=== PATIENT | female | born 1970 | race Caucasian/White ===

== ENCOUNTER 2021-11-06 09:52 | Emergency (ER) | payer BC ==
[2021-11-06 10:24] LABS: BASO # 0.06 K/mm3 (0.02-0.10); EOS # 0.38 K/mm3 (0.04-0.40); EOS % 4.5 % (1.0-5.0); HEMATOCRIT 39.8 % (37.0-47.0); HEMOGLOBIN 13.2 g/dL (12.5-16.0); LYMPH# 2.49 K/mm3 (1.50-4.00); MEAN CELL VOLUME 91 fl (78-100); MEAN CORPUSCULAR HEMOGLOBIN 30 pg (27-31); MEAN CORPUSCULAR HGB CONC 33 g/dL (33-37); MEAN PLATELET VOLUME 10.5 fl (7.4-10.4); MONO # 0.43 K/mm3 (0.20-0.80); NEU # 5.02 K/mm3 (1.40-6.50); PLATELET COUNT 250 K/mm3 (130-400); RED BLOOD COUNT 4.38 M/mm3 (4.10-5.30); RED CELL DISTRIBUTION WIDTH 12.4 % (11.5-14.5); WHITE BLOOD COUNT 8.4 K/mm3 (4.8-10.8)
[2021-11-06 10:34] LABS: ALBUMIN 4.3 g/dL (3.5-5.0); POTASSIUM 4.1 mmol/L (3.5-5.1)
[2021-11-06 10:36] LABS: CALCIUM 9.2 mg/dL (8.3-10.5)
[2021-11-06 10:37] LABS: TOTAL PROTEIN 7.8 g/dL (6.4-8.3)
[2021-11-06 10:39] LABS: TOTAL BILIRUBIN 0.5 mg/dL (0.2-1.2)
[2021-11-06] MEDS ORDERED: LEVOTHYROXINE125 MCG PO (10:39)
[2021-11-06] MEDS ORDERED: ESCITALOPRAM10 MG PO (10:39)
[2021-11-06] MEDS ORDERED: TRESIBA100 UNIT/1 SQ (10:40)
[2021-11-06] MEDS ORDERED: SIMVASTATIN20 M1 PO (10:40)
[2021-11-06] MEDS ORDERED: GLUCOTROL 5M5 MG/TAB PO (10:40)
[2021-11-06] MEDS ORDERED: INSULIN AS100 UNIT/3 SQ (10:40)
[2021-11-06] MEDS ORDERED: HYDROCHLOROTHIA1 T15 PO (10:40)
[2021-11-06] MEDS ORDERED: GLUCOPHAGE PO (10:40)
[2021-11-06 10:54] LABS: URINE APPEARANCE CLEAR; URINE BILIRUBIN NEGATIVE (NEGATIVE); URINE BLOOD 250 ery/uL (NEGATIVE); URINE COLOR YELLOW; URINE KETONE NEGATIVE (NEGATIVE); URINE LEUKOCYTE ESTERASE NEGATIVE (NEGATIVE); URINE NITRATE NEGATIVE (NEGATIVE); URINE PROTEIN(semi-quant) 1+ (NEGATIVE); URINE UROBILINOGEN NORMAL (NORMAL)
[2021-11-06 12:05] VITALS: BP 125/74
== END 2021-11-06 12:05 | disposition home or self-care (01) ==
LOC: ED 09:52
PROVIDERS: Nurse Practitioner
DX: E11.65 Type 2 diabetes mellitus with hyperglycemia (principal); Z20.822 Contact with and (suspected) exposure to COVID-19; Z28.310 Unvaccinated for COVID-19; Z79.4 Long term (current) use of insulin
CPT/HCPCS: J7030